=== PATIENT | male | born 1965 | race Caucasian/White ===

== ENCOUNTER 2025-07-29 07:46 | Emergency (ER) | payer OTHER ==
[2025-07-29] MEDS ORDERED: Sodium Chloride 0.9% 2.5 ML Syringe FLUSH PRN (08:02)
[2025-07-29] MEDS ORDERED: Sodium Chloride 0.9% 10 ML Syringe FLUSH PRN (08:02)
[2025-07-29] MEDS: methylPREDNISolone Sodium Succinate 125 MG/2 ML SDV IVPUSH ONE (08:04)
[2025-07-29] MEDS: diphenhydrAMINE 50 MG/ML SDV IVPUSH ONE (08:04)
[2025-07-29] MEDS: EPINEPHrine 1 MG/ML SDV IM ONE (08:05)
[2025-07-29] MEDS: EPINEPHrine 1 MG/ML SDV ONE (09:02)
== END 2025-07-29 11:47 | disposition home or self-care (01) ==
LOC: MW.ED 07:46
DX: L50.0 Allergic urticaria (principal); T78.40XA Allergy, unspecified, initial encounter; Z88.5 Allergy status to narcotic agent; Z79.899 Other long term (current) drug therapy
CPT/HCPCS: 96361; 96372; 96374; 96375; 99284; J0169; J1200; J1308; J2919; J7030